=== PATIENT | female | born 1950 | race Caucasian/White ===

== ENCOUNTER 2016-07-26 15:00 | Emergency (ER) | payer MEDICARE ==
[2016-07-26 15:15] VITALS: BP 144/72
--- NOTE | 2016-07-26 15:43 | UC ---
Knee Pain HPI - HPI Summary HPI Summary: 65 yo female injured right knee 2 weeks ago hit knee on arm of chair knee is swollen and zofia - History of Current Complaint Chief Complaint: UCLowerExtremity Stated Complaint: RIGHT KNEE INJURY Time Seen by Provider: 07/26/16 15:15 Hx Obtained From: Patient Onset/Duration: Sudden Onset Severity Initially: Moderate Severity Currently: Mild Location Of Injury: right knee Pain Intensity: 4 Pain Scale Used: 0-10 Numeric Character: Aching, Throbbing Aggravating Factor(s): Movement, Weight Bearing, Stairs Alleviating Factor(s): Rest Associated Signs And Symptoms: Positive: Swelling Able to Bear Weight: Yes - Allergies/Home Medications Allergies/Adverse Reactions: Allergies Allergy/AdvReac Type Severity Reaction Status Date / Time No Known Allergies Allergy Verified 07/26/16 15:14 PMH/Surg Hx/FS Hx/Imm Hx Previously Healthy: Yes Endocrine History Of: Denies: Diabetes, Thyroid Disease Cardiovascular History Of: Denies: Cardiac Disorders, Hypertension Respiratory History Of: Denies: COPD, Asthma GI/ History Of: Reports: Ulcer Psychological History Of: Reports: Anxiety - SLIGHT- ON MEDICATION FOR, Depression - SLIGHT- ON MEDICATION FOR Cancer History Of: Denies: Lung Cancer - Surgical History Surgical History: Yes Surgery Procedure, Year, and Place: LEFT LEG VEIN [id number]. TUBAL LIGATION. CHOLECYSTECTOMY WITH APPENDECTOMY - Family History Known Family History: Positive: Hypertension - Social History Alcohol Use: None Substance Use Type: None Smoking Status (MU): Former Smoker Have You Smoked in the Last Year: No When Did the Patient Quit Smoking/Using Tobacco: 40 years ago - Immunization History Most Recent Tetanus Shot: 154 LB Review of Systems Constitutional: Negative Skin: Negative Eyes: Negative ENT: Negative Respiratory: Negative Cardiovascular: Negative Gastrointestinal: Negative Genitourinary: Negative Motor: Negative Neurovascular: Negative Musculoskeletal: Arthralgia Neurological: Negative Psychological: Negative All Other Systems Reviewed And Are Negative: Yes Physical Exam Triage Information Reviewed: Yes Appearance: Well-Appearing, No Pain Distress, Well-Nourished Vital Signs: Initial Vital Signs Temp 99.5 F 07/26/16 15:11 Pulse 73 07/26/16 15:11 Resp 18 07/26/16 15:11 BP 144/72 07/26/16 15:11 Pulse Ox 99 07/26/16 15:11 Vital Signs Reviewed: Yes Eyes: Positive: Conjunctiva Clear ENT: Positive: Hearing grossly normal. Negative: Nasal congestion, Nasal drainage, Tonsillar exudate, Trismus Neck: Positive: Supple, Nontender Respiratory: Positive: Lungs clear, Normal breath sounds, No respiratory distress Cardiovascular: Positive: RRR, No Murmur Musculoskeletal Exam: Other - see image Musculoskeletal: Positive: Edema @ - right knee, Other: - antalgic gait Neurological: Positive: Alert Psychological Exam: Normal Skin Exam: Normal Knee Pain Course/Dx - Differential Dx/Diagnosis Provider Diagnoses: right knee injury. sprain versus meniscal tear Discharge - Discharge Plan Condition: Stable Disposition: HOME Prescriptions: HYDROcodone/ACETAMIN 5-325 MG* [Erwin 5-325 TAB*] 1 tab PO Q4H PRN #14 tab MDD 2 PRN Reason: Pain Patient Education Materials: Knee Pain (ED) Referrals: Andrea Munoz MD [Medical Doctor] - As Soon As Possible Additional Instructions: knee immobilizer when walking ice twice daily see orthopedist as discussed Your BP was a little high and should be recheck with your MD Images Front/Back of Body, Lg ([place]): 1 - tender/swollen, able to fully extend knee
--- NOTE | 2016-07-26 16:10 | RAD ---
Indication: Right knee injury. 4 views of the right knee demonstrates no fracture. No other bone or joint abnormality is noted. No joint effusion is identified. IMPRESSION: Unremarkable right knee.
== END 2016-07-26 16:32 | disposition home or self-care (01) ==
LOC: UCCORT 15:00
DX: S89.91XA Unspecified injury of right lower leg, initial encounter (principal); W22.8XXA Striking against or struck by other objects, initial encounter; Y93.9 Activity, unspecified; Y92.9 Unspecified place or not applicable; F41.8 Other specified anxiety disorders; Z90.49 Acquired absence of other specified parts of digestive tract; Z87.891 Personal history of nicotine dependence
CPT/HCPCS: 99213; G0463

== ENCOUNTER 2017-10-25 13:05 | Emergency (ER) | payer MEDICARE ==
[2017-10-25 14:22] VITALS: BP 134/74
[2017-10-25] MEDS ORDERED: Acetaminophen TAB* 325 MG PO ONE (14:22)
--- NOTE | 2017-10-25 15:55 | UC ---
HPI Febrile Illness - HPI Summary HPI Summary: C/O weak and achy. Fevers and feels sleepy. Back pain with recent lots of yard work. Cough and sore throat. Present x 3 weeks, worse in the last week. - History of Current Complaint Chief Complaint: UCGU Time Seen by Provider: 10/25/17 15:47 Hx Obtained From: Patient Onset/Duration: Started Weeks Ago - 3, Worse Since - the last week Timing: Constant Initial Severity: Mild Current Severity: Moderate Pain Intensity: 9 Aggravating Factors: Nothing Alleviating Factors: Nothing Associated Signs and Symptoms: Cough, Myalgia, Sore Throat - Additional Pertinent History Current Antibiotics: No - Allergy/Home Medications Allergies/Adverse Reactions: Allergies Allergy/AdvReac Type Severity Reaction Status Date / Time No Known Allergies Allergy Verified 07/26/16 15:14 Home Medications: Home Medications Tolterodine (NF) [Detrol (NF)] 1 mg PO DAILY 10/25/17 [History Confirmed ] PMH/Surg Hx/FS Hx/Imm Hx Cardiovascular History: Cardiac Disease GI/ History: Ulcer - Surgical History Surgical History: Yes Surgery Procedure, Year, and Place: LEFT LEG VEIN [id number]. TUBAL LIGATION. CHOLECYSTECTOMY WITH APPENDECTOMY - Family History Known Family History: Positive: Hypertension Negative: Diabetes - Social History Occupation: Retired Lives: With Family Alcohol Use: None Substance Use Type: None Smoking Status (MU): Former Smoker Have You Smoked in the Last Year: No When Did the Patient Quit Smoking/Using Tobacco: 40 years ago - Immunization History Most Recent Tetanus Shot: 154 LB Review of Systems Constitutional: Fever ENT: Sore Throat, Sinus Congestion Respiratory: Cough Is Patient Immunocompromised?: No All Other Systems Reviewed And Are Negative: Yes Physical Exam Triage Information Reviewed: Yes Appearance: No Pain Distress, Well-Nourished, Ill-Appearing - mild with fatigue Vital Signs: Initial Vital Signs Temp 101.2 F 10/25/17 14:16 Pulse 75 10/25/17 14:16 Resp 20 10/25/17 14:16 BP 134/74 10/25/17 14:16 Pulse Ox 100 10/25/17 14:16 Vital Signs Reviewed: Yes ENT: Positive: Pharynx normal, TMs normal, Sinus tenderness - right frontal sinus Neck exam: Normal Respiratory Exam: Normal Cardiovascular Exam: Normal Abdomen Description: Positive: Soft. Negative: Nontender - diffuse abdominal wall tenderness, CVA Tenderness (R), CVA Tenderness (L), McBurney's Point Tenderness, Peritoneal Signs Musculoskeletal Exam: Normal Neurological Exam: Normal Psychological Exam: Normal Skin Exam: Normal Course/Dx - Febrile Illness Differential Diagnoses: Cellulitis, Sepsis - Diagnoses Clinic Provider Diagnoses: Acute URI. Acute sinusitis Discharge - Sign-Out/Discharge Documenting (check all that apply): Discharge/Admit/Transfer - Discharge Plan Condition: Stable Disposition: HOME Prescriptions: Amoxicillin PO (*) [Amoxicillin 875 MG (*)] 875 mg PO BID #20 tab Patient Education Materials: Upper Respiratory Infection (ED), Sinusitis (ED), Amoxicillin (By mouth) Referrals: Su Moore MD [Primary Care Provider] - - Billing Disposition and Condition Condition: STABLE Disposition: Home
== END 2017-10-25 16:23 | disposition home or self-care (01) ==
LOC: UCCORT 13:05
DX: J06.9 Acute upper respiratory infection, unspecified (principal); J01.90 Acute sinusitis, unspecified; Z87.891 Personal history of nicotine dependence
CPT/HCPCS: 81003; 99212; A9270-GY; G0463

== ENCOUNTER 2019-05-13 12:25 | Emergency (ER) | payer MEDICARE, OTHER ==
[2019-05-13 13:14] VITALS: BP 154/84
--- NOTE | 2019-05-13 13:21 | UC ---
Skin Complaint HPI - HPI Summary HPI Summary: 68-year-old female who started having a rash on the right side of her abdomen which is itchy on April 05. It has progressively spread and worsened. She saw her primary care provider who diagnosed it as a viral rash and told her to continue taking omeprazole which the patient was already taking for gastric ulcer. No other family members have a rash. Denies any difficulty breathing and no facial swelling. - History of Current Complaint Chief Complaint: UCSkin Time Seen by Provider: 05/13/19 13:11 Stated Complaint: SKIN COMPLAINT Hx Obtained From: Patient ?: No Onset/Duration: Gradual Onset Skin Exposure Onset/Duration: Weeks Ago Timing: Constant Onset Severity: Mild Current Severity: Moderate Pain Intensity: 3 Location: Generalized Character: Pruritus Aggravating Factor(s): Clothing Alleviating Factor(s): Nothing Associated Signs & Symptoms: Positive: Rash - Allergy/Home Medications Allergies/Adverse Reactions: Allergies Allergy/AdvReac Type Severity Reaction Status Date / Time No Known Allergies Allergy Verified 05/13/19 13:14 PMH/Surg Hx/FS Hx/Imm Hx Previously Healthy: Yes GI/ History: Ulcer - Surgical History Surgical History: Yes Surgery Procedure, Year, and Place: LEFT LEG VEIN [id number]. TUBAL LIGATION. CHOLECYSTECTOMY WITH APPENDECTOMY - Family History Known Family History: Positive: Hypertension Negative: Diabetes - Social History Alcohol Use: None Substance Use Type: None Smoking Status (MU): Former Smoker Have You Smoked in the Last Year: No When Did the Patient Quit Smoking/Using Tobacco: 40 years ago - Immunization History Most Recent Tetanus Shot: couple of years ago Vaccination Up to Date: Yes Review of Systems All Other Systems Reviewed And Are Negative: Yes Skin: Positive: Rash - Rash started on right side of abdomen but now is more of a generalized itchy rash. Is Patient Immunocompromised?: No Physical Exam Triage Information Reviewed: Yes Appearance: Well-Appearing, No Pain Distress, Well-Nourished Vital Signs: Initial Vital Signs Temp 97.4 F 05/13/19 13:10 Pulse 78 05/13/19 13:10 Resp 18 05/13/19 13:10 BP 154/84 05/13/19 13:10 Pulse Ox 99 05/13/19 13:10 Vital Signs Reviewed: Yes Respiratory: Positive: Lungs clear, Normal breath sounds, No respiratory distress, No accessory muscle use Cardiovascular: Positive: RRR, No Murmur, Pulses Normal, Brisk Capillary Refill Musculoskeletal Exam: Normal Neurological Exam: Normal Psychological Exam: Normal Skin: Positive: Rashes - Itchy rash of various sizes on trunk and arms. Appears more dry and scaly, irregularly shaped. No drainage. Nontender on palpation. Course/Dx - Course Course Of Treatment: I'm starting the patient on prednisone taper with a definite follow-up to either her primary care provider at [facility] or a motion picture operator before the prednisone is completed. I stressed to the patient the importance of taking the prednisone with food because she has a history of stomach ulcer. Still go to the emergency room if any worsening symptoms, throat closing, facial swelling or difficulty breathing. - Diagnoses Provider Diagnosis: Rash and nonspecific skin eruption Discharge ED - Sign-Out/Discharge Documenting (check all that apply): Patient Departure All imaging exams completed and their final reports reviewed: No Studies - Discharge Plan Condition: Fair Disposition: HOME Prescriptions: predniSONE 10 mg TAB [Deltasone 10 MG TAB*] 10 mg PO DAILY 12 Days #30 tab Patient Education Materials: Urticaria (ED) Referrals: No Primary Care Phys,[facility]OPCP [Primary Care Provider[facility] Amy Clemente MD [Medical Doctor] - Additional Instructions: Avoid scratching, take the prednisone with food, follow-up with either your primary care provider or a motion picture operator before the prednisone is finished. Go to the emergency room if you develop any facial swelling, throat closing or difficulty breathing. - Billing Disposition and Condition Condition: FAIR Disposition: Home
== END 2019-05-13 13:31 | disposition home or self-care (01) ==
LOC: UCCORT 12:25
DX: R21 Rash and other nonspecific skin eruption (principal); Z87.891 Personal history of nicotine dependence
CPT/HCPCS: 99212; G0463